=== PATIENT | male | born 1955 | race Caucasian/White ===

== ENCOUNTER → 2023-09-01 15:56 | Outpatient (REF) | payer MEDICARE, OTHER, SELFPAY | LOC: RAD 15:56 | PROVIDERS: ATTENDING PHYSICIAN Internal Medicine Cardiovascular Disease; FAMILY PHYSICIAN Family Medicine | DX: R55 Syncope and collapse (principal); I47.29 Other ventricular tachycardia; R00.0 Tachycardia, unspecified; I26.99 Other pulmonary embolism without acute cor pulmonale | CPT/HCPCS: 93970 ==

== ENCOUNTER 2023-09-19 06:03 | Day surgery (SDC) | payer MEDICARE, OTHER, SELFPAY ==
[2023-09-19] VITALS (16 sets, daily range): BP systolic 78–160; BP diastolic 52–104; BMI 31.9
--- NOTE | 2023-09-19 10:00 | ITS.CL.ABL ---
[employer] [facility] - Ablation
Ablation
Procedure Report:
PVC ablation:
Mr. 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
Date of the Procedure:
09/19/2023
Indications:
High burden of PVC
Pre-Operative Diagnosis:
Premature ventricular contractions, Ventricular tachycardia
Post-Operative Diagnosis:
Premature ventricular contractions, Ventricular tachycardia
Procedure Performed:
PVC ablation #1 � LV infero septal area
PVC ablation #2 � Basal inferior
PVC ablation #3 � inferolateral at mitral annulus
3D mapping
ICE
Left Ventricular / right ventricular pacing and recording
Performing Physician:
Viraj Simpson MD
Assistants:
EP staff
Anesthesia:
See anesthesia records
Detailed Description of the Procedure:
Written informed consent was obtained from the patient after a full explanation of the risks and benefits of the procedure including the risks of sedation and anesthesia. The patient was brought to the electrophysiology laboratory in stable
condition in fasting state. Continuous electrocardiographic and hemodynamic monitoring was initiated.
The initial rhythm was normal sinus rhythm with PVCs.
The procedure site was meticulously prepared with surgical scrub and allowed to dry with no pooling. Sterile draping was applied to cover the procedure site. The image intensifier was draped with sterile bag and positioned over the patient. After
infusion of local anesthetic, vascular access was obtained under ultrasound guidance and sheaths were placed over guide wire as detailed below.
Sheath and Catheter Placement:
In the right femoral vein, an 8 Fr sheath was placed under ultrasound guidance for ablation. In the right femoral vein, another 9-Stateless sheath was placed under ultrasound guidance for ICE.
The femoral sheath was upgraded as needed during the case. The following catheters / sheaths were placed
Sheaths:
��������������� 8Fr in right femoral vein � upgraded to VISIGO sheath
��������������� 9Fr sheath in right femoral vein
Catheters:
��������������� Biosense Peguero Thermocool STSF bidirectional - at locations of HRA, RV, LV
��������������� Sound-Star ICE catheter
Anticoagulation:
An initial 7000 units of heparin was given after the IV access. The additional 5000 units were given after the trans-septal puncture and heparin drip was started. The ACT was checked every 30 minutes to keep ACT above 300 throughout the case.
Intracardiac ECHO:
An 8-Stateless SoundStar intracardiac ECHO (ICE) probe was advanced through the 9-Stateless sheath in the femoral vein into the right atrium under fluoroscopic and ICE ultrasound image guidance and a baseline ECHO study was performed. The left atrial size
was normal. There was trace tricuspid regurgitation. The aortic valve was grossly normal. There was borderline normal left ventricular systolic function. There is trace pericardial effusion. The LV cavity was mapped and the contours were made using
the ICE on 3D mapping. The Pap muscles were identified. The mitral valve annulus and the POONAM were marked.
During the procedure, ICE was used for monitoring of complications, guidance of trans-septal puncture, monitor the catheter position and tracking ablation lesions. No change in the pericardial space noted throughout the procedure.
There were multiple PVCs noted a total of 5 different morphologies were recorded. The clinical and more prevalent PVC were marked and were noted to be coming from the LV infero-septal area by EKG analysis.
Electroanatomic mapping (EAM) of the right atrium:
Using the Themocool STSF ablation catheter advanced through 8Fr sheath into the right atrium, an electroanatomic map (EAM) of the right atrium was created using BiosFluencyter Carto mapping system. The map was used to identify the trans-septal
location. It showed normal right atrium.
The RV was mapped and the earliest PVCs were coming from the septal area with a wide area and not earlier than the surface EKG. Decision was made to proceed with trans-septal puncture.
Trans-septal Puncture:
A J-tipped guidewire was advanced through the 8-Stateless sheath in the right femoral vein into the superior vena cava under EAM and ICE guidance. The 8-Stateless sheath was exchanged for a VIZIGO sheath which was advanced into the superior vena cava. A
BRK needle was advanced until the tip was slightly behind the tip of the dilator inside the Visigo sheath. The apparatus was withdrawn until it was in contact with the fossa ovalis. The position was adjusted based on EAM and ultrasound images from
ICE. Under EAM, hemodynamic and ICE ultrasound guidance, left atrium was cannulated by advancing the needle. Once atrial septum was cannulated, the needle was pulled back and a saline injection was done into the left atrium. The saline bubbles were
noted on the ICE confirming the trans-septal puncture. Both the sheath and the dilator was advanced into the left atrium. The dilator with the needle was withdrawn. Blood was aspirated from the sheath and arterial blood confirmed. The sheath was
flushed. Saline injection noted into the left atrium on ICE. The pressure waveform was checked ad LA pressure measured. The ablation catheter was advanced in the sheath into the left pulmonary vein.
3D Electroanatomic Mapping of the LV:
Using the Thermocool STSF catheter was advanced through the VIZIGO sheath, an electroanatomic map (EAM) of the cardiac chambers was created using UserZoom Carto mapping system. The PVCs were mapped. Both the PVC propagation maps as well as
Pacemaps were made. The PVC was noted to be coming from the basal inferoseptal area and had > 98% match.
Ablation # 1: LV infero septal area PVC ablation:
The LV was mapped thoroughly. Using the force sensing radiofrequency ablation catheter, Thermocool STSF, the earliest point of the map and the pacemap match was ablated. Multiple addition ablation lesions were placed to consolidate the ablation.
�
EAM and ablation of PVC # 2: Basal inferior PVC
The second PVC was similar to the first but had distinct characters. These were mapped before the ablation of the first ablation with concomitant mapping in the LV. The PVCs were mapped thoroughly and pre-QRS elecrogram mapped and the focal source
identified. Using Thermocool STSF irrigated ablation catheter, the earliest location was ablated. Additional consolidated lesions were placed. The PVC were completely suppressed.
EAM and ablation of PVC # 3 (inferolateral at mitral annulus):
The PVC was mapped on the LV side and the earliest location identified. The LV cavity was mapped for the PVC source as well as pacemap created. The earliest location of the PVC source was well ahead of the QRS on the mitral annulus side and had
excellent unipolar signals. Ablation at the focal source was able to suppress the PVCs completely.
Patient was observed for 15 minutes and few of the non-clinical PVCs noted.
Some non-clinical PVCs continued occasionally.
Procedure End
ICE study was done again that showed no epicardial accumulation. No complications noted.
Following the completion of the EP study, catheters were removed. Protamine 40 mg was given at the end of the procedure and ACT was checked repeatedly. The sheaths were removed and hemostasis achieved with Vascade x 2 and manual compression after
acceptable ACT is achieved.
LA and LV Pressure:
Mean LA pressure was 10mmHg
Mean RA pressure 6 mmHg
Fluoro Time:
0 � Fluoroless case
Estimated Blood loss:
<5 cc
Specimens Removed:
None.
Implants / Devices:
None
Urine output:
None
Packs / Drains/ Tubes:
None
Instrument / Sponge Count Correct:
Yes
Complications of the Procedure:
None
Condition of Patient at Time of Transfer:
Hemodynamically stable with no neurological or vascular compromise.
Summary:
PVC/VT ablation of the LV infero septal area, Basal inferior PVC, and PVC from inferolateral at mitral annulus
PVC #1
PVC #2
PVC # 3
[2023-09-19] MEDS: TYLENOL 650 MG PO (10:23)
[2023-09-19] MEDS: TORADOL 15 MG IV (11:20)
[2023-09-22 08:58] LABS: ACT-LR - POC 326 Seconds (116-155)
[2023-09-22 08:58] LABS: ACT-LR - POC 332 Seconds (116-155)
[2023-09-22 08:58] LABS: ACT-LR - POC 281 Seconds (116-155)
== END 2023-09-19 12:45 | disposition home or self-care (01) ==
LOC: CATH 06:03
PROVIDERS: ATTENDING PHYSICIAN Internal Medicine Cardiovascular Disease; FAMILY PHYSICIAN Family Medicine
DX: I47.29 Other ventricular tachycardia (principal); I49.3 Ventricular premature depolarization; I42.8 Other cardiomyopathies; R00.8 Other abnormalities of heart beat; I10 Essential (primary) hypertension; E78.00 Pure hypercholesterolemia, unspecified; Z79.82 Long term (current) use of aspirin
CPT/HCPCS: 93662; C1769; C1732; C1894; C1759; C1892; 85347; 86850; 86900; 86901; 93005; 93654; C1760

== ENCOUNTER 2024-04-29 10:24 | Emergency (ER) | payer MEDICARE, OTHER, SELFPAY ==
[2024-04-29 10:38] VITALS: BP 175/107
[2024-04-29 11:08] VITALS: BMI 33.2
--- NOTE | 2024-04-29 11:41 | ED.GENMED ---
History of Present Illness
General
Chief Complaint: Cardiac Symptoms
Source: patient
Time Seen by Provider: 04/29/24 11:02
History of Present Illness
History of Present Illness:
69-year-old male presents the emergency room complaining of having had an episode of chest pain 4 days ago. Patient states he was performing some work on his pool when he developed the pain. It was a sudden onset of pain that was significant but
lasted less than a minute. Pain resolved spontaneously. He has not had any recurrence since then. In the days prior to this event and in the days following he has performed his normal daily activities including some exercise and has not had any
chest discomfort. Patient has a history of frequent PVCs for which he had a ablation in September.
Past History
Past History
ED Past Medical History: HTN and Hypercholesterolemia
ED Past Surgical History: Appendectomy
Social History
Tobacco: Non-smoker
Alcohol: Occasional
Drug: None
Personal:
Living: with family
Phy Exam
Physical Exam
Physical Exam:
General: Awake, Alert, Oriented X3. No acute distress.
Vitals: unremarkable
Head: Atraumatic
Eyes: Pupils equal, EOMI
Throat: Airway intact, no exudates
Neck: Trachea midline
Lungs: Clear and equal b/l
Heart: Regular rate, no murmurs
Abd: Soft, Nontender, No pulsatile mass
Neuro: Nonfocal
Skin: Warm, dry, no rash
Extremities: pulses equal b/l, no edema
Course
Orders/Labs/Results
Orders:
Orders
04/29/24 10:39
ECG [Electrocardiogram (*1)] Urgent
Reason for Study: Shortness of Breath
04/29/24 10:40
EKG- Treatment ONCE
04/29/24 11:40
CR Chest - 2 Views Urgent
Comment:
Reason For Exam: chest pain
04/29/24 11:43
Basic Metabolic Panel Urgent
Complete Blood Count/With Diff Urgent
Troponin I Urgent
Abnormal Lab Results
04/29/24
11:43
RBC 4.57 L 10^6/uL
(4.70-6.10)
MCH 31.9 H pg
(27.0-31.0)
Absolute Monos (auto) 0.7 H 10^3/uL
(0.1-0.6)
Lymphocytes % 20.2 L %
(20.5-51.1)
Monocytes % 9.5 H %
(1.7-9.3)
BUN 26 H mg/dl
(9-20)
04/29/24 11:43
04/29/24 11:43
Vital Signs
Initial and Last Documented VS:
Initial Vital Signs
Temp Pulse Resp BP Pulse Ox
98.2 F 79 18 175/107 97
04/29/24 10:38 04/29/24 10:38 04/29/24 10:38 04/29/24 10:38 04/29/24 10:38
Last Documented Vital Signs
Temp Pulse Resp BP Pulse Ox
98.2 F 62 15 134/83 97
04/29/24 10:38 04/29/24 13:15 04/29/24 13:00 04/29/24 13:00 04/29/24 10:38
MDM/Problems Addressed
Differential Diagnosis Includes:
Stable angina, ACS, chest wall pain, GERD
MDM/Problems Addressed:
Patient had chest pain several days ago. No pain now. He has normal labs. Chest x-ray shows a hiatal hernia but no other acute findings. Patient is aware of his hiatal hernia. 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
*Radiology
Radiology exam reviewed: radiology read reviewed
*Pulse Oximetry
Patient hypoxic: no
*EKG
Interpreted by ED Provider?: Yes
Heart Rate: 71
Rate: normal
Rhythm: sinus
Moffit: normal axis
Interval: first degree heart block
QRS Pattern: normal QRS
Ischemia: no ischemia
*Pulling Unit Floorhand Interpretation
Rate: normal
Interpretation: normal
Heart Rate: 71
Rhythm: sinus
*Critical Care Note
Total Time (30-74mins, 75-104mins- exclusive of procedures): Not Applicable
ED Attending Note
-
Portions of this chart may have been created with voice recognition software.� Occasional wrong word or��sound alike� substitutions may have occurred due to the inherent limitations of voice recognition software.
Discharge Plan
Departure
Patient Disposition: Home (Routine Discharge)
Date of Disposition: 04/29/24
Time of Disposition: 13:34
Patient with high blood pressure during this ER visit?: No
Condition: Good
Discharge Problem:
Chest pain
Instructions: Chest Pain CBC Follow Up
Prescriptions:
No Action
cholecalciferol (vitamin D3) 1,000 UNITS tablet
1,000 units PO DAILY
multivitamin with folic acid [Tab-A-Eloy] 1 TABLET tablet
1 tab PO DAILY
zinc 50 mg Tablet
50 mg PO DAILY
aspirin 81 mg Tablet
81 mg PO DAILY
loratadine 10 mg Tablet
10 mg PO DAILY PRN (Reason: allergies)
rosuvastatin 10 mg Tablet
10 mg PO QPM
saw palmetto 450 mg Capsule
900 mg PO BID
omega 4-niz-zsi-fish oil [Fish Oil] 1,200 (144-216) mg Capsule
1 cap PO DAILY
metoprolol succinate 25 mg capsule,sprinkle,ER 24hr
25 mg PO BID
acetaminophen 325 MG tablet
650 mg PO Q4HPRN PRN (Reason: pain)
pantoprazole [Protonix] 40 mg tablet,delayed release (DR/EC)
40 mg PO DAILY Qty: 14 0RF
Rx Instructions:
daily for 2 weeks post procedure, then stop
Referrals:
Janeth Hollingsworth DO [Family Provider] -
Khanh Franklin MD [Active] -
Interventions
Interventions:
*Risk Screen - Suicide Last Done: 04/29/24 11:09
*General Assessment Last Done: 04/29/24 11:09
*Neglect/Abuse Screening Last Done: 04/29/24 11:09
*ED COVID-19 Vaccine History Last Done: 04/29/24 11:09
*Nursing Disposition Last Done: 04/29/24 13:45
ED- Pulmonary Assessment Last Done: 04/29/24 11:11
ED- Cardiac Assessment Last Done: 04/29/24 11:11
Discharge Date and Time
Discharge Date/Time: 04/29/24 13:46
Print Language: SINHALA
[2024-04-29 11:56] LABS: % Basophils 0.5 % (0-2); % Eosinophils 0.6 % (0-6); % Immature Granulocytes 0.1 % (0-0.5); % Lymphocytes 20.2 % (20.5-51.1); % Monocytes 9.5 % (1.7-9.3); % Neutrophils 69.1 % (42.2-75.2); Absolute Eosinophils 0.1 10^3/uL (0-0.7); Absolute Lymphocytes 1.6 10^3/uL (1.2-3.4); Absolute Monocytes 0.7 10^3/uL (0.1-0.6); Absolute Neutrophils 5.4 10^3/uL (1.4-6.5); Hematocrit 41.9 % (39.0-52.0); Hemoglobin 14.6 g/dL (13.0-18.0); Mean Corp Hgb Conc. 34.8 g/dL (33.0-37.0); Mean Corpuscular Hgb 31.9 pg (27.0-31.0); Mean Corpuscular Volume 91.7 fL (80.0-94.0); Mean Platelet Volume 10.1 fL (7.4-10.4); Nucleated Red Blood Cells % 0 % (-); Platelet Count 183 10^3/uL (130-400); Red Blood Cell Count 4.57 10^6/uL (4.70-6.10); Red Cell Dist. Width 13.2 % (11.5-14.5); White Blood Cell Count 7.8 10^3/uL (4.8-10.8)
[2024-04-29 12:02] VITALS: BP 149/86
[2024-04-29 12:03] VITALS: BP 151/79
[2024-04-29 12:15] LABS: Blood Urea Nitrogen 26 mg/dl (9-20); Calcium 9.2 mg/dl (8.4-10.2); Carbon Dioxide 29 mmol/L (22-30); Chloride 106 mmol/L (98-107); Estimated Creatinine Clearance 114 ml/min; Glucose 98 mg/dl (70-99); Potassium 4.7 mmol/L (3.5-5.1); Sodium 142 mmol/L (135-145); eGFR > 60.00
[2024-04-29 12:17] LABS: Troponin I < 0.012 ng/ml
[2024-04-29 13:00] VITALS: BP 134/83
== END 2024-04-29 13:46 | disposition home or self-care (01) ==
LOC: EMR 10:24
PROVIDERS: EMERGENCY PHYSICIAN Emergency Medicine; FAMILY PHYSICIAN Family Medicine
DX: R07.89 Other chest pain (principal)
CPT/HCPCS: 99285; 71046; 80048; 84484; 85025; 93005

== ENCOUNTER 2024-10-30 06:13 | Day surgery (SDC) | payer MEDICARE, OTHER, SELFPAY | END 2024-10-30 11:32 | disposition home or self-care (01) | LOC: GI 06:13 | PROVIDERS: ATTENDING PHYSICIAN Surgery | DX: Z12.11 Encounter for screening for malignant neoplasm of colon (principal); K57.30 Diverticulosis of large intestine without perforation or abscess without bleeding; D12.3 Benign neoplasm of transverse colon; K63.5 Polyp of colon; Z86.0101 Personal history of adenomatous and serrated colon polyps | CPT/HCPCS: 45385; 45380; 88305 ==